=== PATIENT | male | born 1985 | race Caucasian/White ===

== ENCOUNTER 2017-06-26 19:00 | Emergency (ER) | payer MEDICAID ==
--- NOTE | 2017-06-26 19:20 | Emergency Department Record ---
History of Present Illness - General Chief complaint: Pain Stated complaint: LT SIDE RIB PAIN Time Seen by Provider: 06/26/17 19:13 Source: Patient Mode of Arrival: Ambulatory Limitations: No limitations - History of Present Illness Initial comments: 32 yo male presents to ED for evaluation of left sided lower rib pain intermittently which began approximately 2 weeks ago, reports cough symptoms, denies fevers, chills, or health problems at his baseline. Pain began after plowing snow, occurs intermittently with deep breaths/coughing. Patient denies history of DVT, lower extremity swelling, or difficulty in breathing. MD Complaint: Other Onset/Timin -: Week(s) Location: Left History of Same: No Severity scale (1-10): 8 Quality: Sharp, Stabbing Consistency: Intermittent Improves with: Nothing Worsens with: Other (deep inspiration) Associated Symptoms: Denies other symptoms - Related Data Previous Rx's Medication Instructions Recorded Doxycycline Hyclate [Doxycycline] 200 mg PO BID #18 cap 06/26/17 Allergies Allergy/AdvReac Type Severity Reaction Status Date / Time morphine Allergy RASH Verified 06/26/17 19:10 Travel Screening - Travel/Exposure Within Last 30 Days Have you traveled within the last 30 days?: No Review of Systems Constitutional: Denies: Chills, Fever, Malaise, Night sweats Eyes: Denies: Eye discharge, Eye pain ENT: Denies: Congestion, Ear pain, Epistaxis Respiratory: Reports: Cough. Denies: Dyspnea Cardiovascular: Reports: Chest pain. Denies: Dyspnea on exertion Endocrine: Denies: Fatigue, Heat or cold intolerance Gastrointestinal: Denies: Nausea, Vomiting Genitourinary: Denies: Incontinence, Retention Musculoskeletal: Denies: Arthralgia, Back pain, Gout, Joint swelling Skin: Denies: Bruising Neurological: Denies: Abnormal gait, Confusion, Headache, Seizure Psychiatric: Denies: Anxiety Hematological/Lymphatic: Denies: Anemia, Blood Clots Past Medical History - SOCIAL HISTORY Smoking Status: Current every day smoker Alcohol Use: None Drug Use: None - RESPIRATORY Hx Respiratory Disorders: No - CARDIOVASCULAR Hx Cardio Disorders: No - NEURO Hx Neuro Disorders: No - GI Hx GI Disorders: No - Hx Genitourinary Disorders: No - ENDOCRINE Hx Endocrine Disorders: No - MUSCULOSKELETAL Hx Musculoskeletal Disorders: No - PSYCH Hx Psych Problems: No - HEMATOLOGY/ONCOLOGY Hx Hematology/Oncology Disorders: No Family Medical History Any Significant Family History?: No Physical Exam - General General Appearance: Alert, Oriented x3, Cooperative, Mild distress Limitations: No limitations - Head Head exam: Atraumatic, Normocephalic, Normal inspection Head exam detail: negative: Abrasion, Contusion, Navarro's sign, General tenderness, Hematoma, Laceration - Eye Eye exam: Normal appearance. negative: Conjunctival injection, Periorbital swelling, Periorbital tenderness, Scleral icterus - ENT Ear exam: negative: Auricular hematoma, Auricular trauma Nasal Exam: negative: Active bleeding, Discharge, Dried blood, Foreign body Mouth exam: negative: Drooling, Laceration, Muffled voice, Tongue elevation - Neck Neck exam: Normal inspection. negative: Meningismus, Tenderness - Respiratory Respiratory exam: Normal lung sounds bilaterally, Chest wall tenderness (Mild TTP lower left ribs on examination). negative: Rales, Respiratory distress, Rhonchi, Stridor - Cardiovascular Cardiovascular Exam: Regular rate, Normal rhythm, Normal heart sounds - GI/Abdominal GI/Abdominal exam: Soft. negative: Rebound, Rigid, Tenderness - Rectal Rectal exam: Deferred - exam: Deferred - Extremities Extremities exam: Normal inspection. negative: Calf tenderness, Pedal edema, Tenderness - Back Back exam: Denies: CVA tenderness (R), CVA tenderness (L) - Neurological Neurological exam: Alert, Normal gait, Oriented X3 - Psychiatric Psychiatric exam: Normal affect, Normal mood - Skin Skin exam: Normal color. negative: Abrasion Type of lesion: negative: abrasion Course Vital Signs 06/26/17 19:08 Temperature 98.2 F Pulse Rate [ 90 Pulse Ox Probe] Respiratory 20 Rate Blood Pressure 117/85 [Left Arm] Pulse Ox 96 - Reevaluation(s) Reevaluation #1: 06/26/17 19:31 EKG: NSR 98 Indeterminate axis, artifact present, low voltage No acute ST-T wave changes are present Reevaluation #2: 06/26/17 19:57 CXR: LLL infiltrate and small pleural effusion Patient was updated on his radiology results, will initiate treatment with Doxycyline in ED with instructions for follow-up in 7-10 days with a PCP to ensure resolution of his CXR findings. Patient appears stable for discharge at this time. Disposition Disposition: Discharge Clinical Impression: Community acquired pneumonia Qualifiers: Laterality: left Lung location: lower lobe of lung Qualified Code(s): J18.1 - Lobar pneumonia, unspecified organism Disposition: Home, Self-Care Condition: (2) Stable Instructions: Community Acquired Pneumonia (ED) Additional Instructions: Return to ED if your symptoms worsen or if you have any concerns. Doxycycline as directed. Follow-up with a primary care provider in 7-10 days to ensure that your chest radiograph findings resolve and that your symptoms are improving. Prescriptions: Doxycycline Hyclate [Doxycycline] 200 mg PO BID #18 cap Forms: Patient Portal Access Time of Disposition: 20:00 Quality - Quality Measures Quality Measures: N/A - Blood Pressure Screening Does Patient Have Any of the Following: No Blood Pressure Classification: Pre-Hypertensive BP Reading Systolic Measurement: 111 Diastolic Measurement: 87 Screening for High Blood Pressure: < Pre-Hypertensive BP, F/U Documented > [ [id number]] Pre-Hypertensive Follow-up Interventions: Referral to alternative/primary care provider.
[2017-06-26] MEDS ORDERED: DOXYCYCLINE HYCLATE 100 MG CAPSULE PO ONE (19:56)
--- NOTE | 2017-06-27 10:22 | RADIOLOGY REPORT ---
EXAM: CHEST, TWO VIEWS HISTORY: LEFT SIDED CHEST PAIN AND RIB PAIN. TECHNIQUE: PA and lateral upright views of the chest were obtained. Comparison: None. FINDINGS: The heart, mediastinum, and pulmonary vasculature are normal. There is focal infiltrate within the left lower lobe just above the hemidiaphragm. There is a small left pleural effusion. Ther remaining lung cullen are clear. There is no pneumothorax. The bones appear intact. IMPRESSION: MILD LEFT LOWER LOBE INFILTRATE AND SMALL LEFT PLEURAL EFFUSION. FOLLOW-UP EXAMS ARE RECOMMENDED TO CONFIRM CLEARING. JOB NUMBER: [id number] [facility]
== END 2017-06-26 20:14 | disposition home or self-care (01) ==
LOC: ER 19:00
DX: J18.1 Lobar pneumonia, unspecified organism (principal); F17.210 Nicotine dependence, cigarettes, uncomplicated
CPT/HCPCS: 71046; 93005; 93010; 99284